=== PATIENT | male | born 1980 | race Caucasian/White ===

== ENCOUNTER 2016-11-27 18:54 | Emergency (ER) | payer SELFPAY ==
--- NOTE | 2016-11-27 19:10 | ER Document Report ---
ED Medical Screen (RME) - General Stated Complaint: LOW BACK AND LEFT HIP PAIN Mode of Arrival: Wheelchair Information source: Patient Notes: Patient presents emergency department with low left-sided back pain that radiates down his left hip. Denies other symptoms such as fever vomiting diarrhea. No recent traumas. Reports hx of arthritis. I have greeted and performed a rapid initial assessment of this patient. A comprehensive ED assessment and evaluation of the patient, analysis of test results and completion of the medical decision making process will be conducted by additional ED providers. TRAVEL OUTSIDE OF THE [place] IN LAST 30 DAYS: No - Related Data Allergies/Adverse Reactions: No Known Allergies Allergy (Verified 09/13/16 13:08) Past Medical History - Immunizations Hx Diphtheria, Pertussis, Tetanus Vaccination: Yes
[2016-11-27 19:11] VITALS: BP 127/64
[2016-11-27] MEDS ORDERED: PREDNISONE 20 MG TABLET PO ONE (20:37)
[2016-11-27] MEDS ORDERED: OXYCODONE-ACETAMINOPHEN 5-325 MG TABLET PO ONE (20:37)
--- NOTE | 2016-11-27 20:38 | ER Document Report ---
ED General - General Chief Complaint: Hip Pain Stated Complaint: LOW BACK AND LEFT HIP PAIN Mode of Arrival: Wheelchair Notes: Patient is a 36-year-old male that comes emergency department for chief complaint of pain in his left lower back radiating down his left leg, symptoms started yesterday and has been worsening he states he took ibuprofen but this has not resolved his symptoms whatsoever. He states he was told he has arthritis in his lower back after he had x-rays in September, he denies any back surgeries, denies any fever, denies urinary incontinence or retention, focal numbness or weakness, denies IV drug abuse. TRAVEL OUTSIDE OF THE [place] IN LAST 30 DAYS: No - Related Data Allergies/Adverse Reactions: No Known Allergies Allergy (Verified 11/27/16 19:10) Home Medications: Current Home Medications Ibuprofen 4 tab PO PRN 11/27/16 [History] Past Medical History - General Information source: Patient - Social History Smoking Status: Current Every Day Smoker Chew tobacco use (# tins/day): No Frequency of alcohol use: None Drug Abuse: None Family History: Reviewed & Not Pertinent Patient has suicidal ideation: No Patient has homicidal ideation: No Renal/ Medical History: Denies: Hx Peritoneal Dialysis Musculoskeltal Medical History: Reports Hx Arthritis Surgical Hx: Negative - Immunizations Hx Diphtheria, Pertussis, Tetanus Vaccination: Yes Review of Systems - Review of Systems Constitutional: No symptoms reported EENT: No symptoms reported Cardiovascular: No symptoms reported Respiratory: No symptoms reported Gastrointestinal: No symptoms reported Genitourinary: No symptoms reported Male Genitourinary: No symptoms reported Musculoskeletal: See HPI Skin: No symptoms reported Hematologic/Lymphatic: No symptoms reported Neurological/Psychological: No symptoms reported Physical Exam - Vital signs Vitals: Temp Pulse Resp BP Pulse Ox 98.0 F 100 20 127/64 H 99 11/27/16 19:10 11/27/16 19:10 11/27/16 19:10 11/27/16 19:10 11/27/16 19:10 Interpretation: Normal - General General appearance: Alert In distress: Mild - Patient rolled onto his right side, has a pillow between his legs, appears to be somewhat uncomfortable - HEENT Head: Normocephalic, Atraumatic Eyes: Normal Conjunctiva: Normal Extraocular movements intact: Yes Eyelashes: Normal Pupils: PERRL Nasal: Normal Mouth/Lips: Normal Mucous membranes: Normal Pharynx: Normal Neck: Normal - Respiratory Respiratory status: No respiratory distress Chest status: Nontender Breath sounds: Normal Chest palpation: Normal - Cardiovascular Rhythm: Regular. No: Tachycardia Heart sounds: Normal auscultation, S1 appreciated, S2 appreciated Murmur: No - Abdominal Inspection: Normal Distension: No distension Bowel sounds: Normal Tenderness: Nontender. No: Tender, Guarding Organomegaly: No organomegaly - Back Back: Tender - Tender with wincing with palpation over the left paralumbar musculature, positive straight leg raise on the left side, no midline spinal tenderness, no saddle anesthesia, normal distal neurovascular exam - Extremities General upper extremity: Normal inspection, Nontender, Normal color, Normal ROM , Normal temperature General lower extremity: Normal inspection, Nontender, Normal color, Normal ROM , Normal temperature, Normal weight bearing. No: Dakota's sign - Neurological Neuro grossly intact: Yes Cognition: Normal Orientation: AAOx4 [place] Coma Scale Eye Opening: Spontaneous [place] Coma Scale Verbal: Oriented [place] Coma Scale Motor: Obeys Commands David Coma Scale Total: 15 Speech: Normal Motor strength normal: LUE, RUE, LLE, RLE Sensory: Normal - Psychological Associated symptoms: Normal affect, Normal mood - Skin Skin Temperature: Warm Skin Moisture: Dry Skin Color: Normal Course - Re-evaluation Re-evalutation: Patient with obvious pain, has pain radiating from the left lower lumbar area down the back of his leg, positive straight leg raise, no neurological deficits , no midline spinal tenderness, no reported injuries to the spine. Previous radiology reviewed and does show degenerative disc disease. Patient will be treated for sciatica with pain medication and prednisone, discussed primary care follow-up and return precautions. Patient states understanding and agreement. - Vital Signs Vital signs: Temp Pulse Resp BP Pulse Ox 98.0 F 100 20 127/64 H 99 11/27/16 19:10 11/27/16 19:10 11/27/16 19:52 11/27/16 19:10 11/27/16 19:10 Discharge - Discharge Clinical Impression: Lower back pain Qualifiers: Chronicity: acute Back pain laterality: left Sciatica presence: with sciatica Sciatica laterality: sciatica of left side Qualified Code(s): M54.42 - Lumbago with sciatica, left side Condition: Stable Disposition: HOME, SELF-CARE Additional Instructions: Examination is consistent with sciatica, take pain medication as prescribed, take prednisone as prescribed, rest. Follow-up with primary care. You may need a referral from primary care to spinal specialty. Return to emergency department for any concerning or worsening symptoms including fever, loss of bowel or bladder control, loss of feeling, or any other concerning symptoms. Sciatica Your symptoms suggest "sciatica." The pain of sciatica typically radiates down the leg. Numbness in the foot or calf may also occur. Sciatica is caused by irritation of the sciatic nerve or its branches. The irritation can be due to a herniated disk in the spine, swelling and inflammation in the muscles surrounding the sciatic nerve, or direct injury of the nerve itself. Most cases of sciatica will resolve with medical treatment. Bed rest is usually recommended initially. Surgery is only necessary when the condition will not improve with rest and antiinflammatory medication. Muscle relaxers are often given if muscle soreness is present. A CAT scan of the back may be performed if a herniated disk is suspected. Re-examination is necessary if you develop increasing numbness, localized weakness in the foot or ankle, or if the pain does not respond to rest. Prescriptions: Oxycodone HCl/Acetaminophen [Percocet 5-325 mg Tablet] 1 - 2 tab PO Q4H PRN #20 tablet PRN Reason: Prednisone [Deltasone 10 mg Tablet] 10 mg PO ASDIR PRN #21 tablet PRN Reason: Referrals: [facility] [Provider Group] - Follow up in 1 week
[2016-11-27] MEDS ORDERED: HYDROCODONE/ACETAMINOPHEN 5-325 MG 6 TAB/DSPK PO PRN (20:56)
== END 2016-11-27 21:35 | disposition home or self-care (01) ==
LOC: ER 18:54
DX: M54.42 Lumbago with sciatica, left side (principal); F17.200 Nicotine dependence, unspecified, uncomplicated
CPT/HCPCS: 99283; J7512

== ENCOUNTER 2016-11-29 14:17 | Emergency (ER) | payer SELFPAY ==
--- NOTE | 2016-11-29 14:51 | ER Document Report ---
ED Medical Screen (RME) - General Stated Complaint: LEG PAIN Mode of Arrival: Ambulatory Information source: Patient Notes: 36-year-old male presents to emergency department complaining of low back pain radiating down his left leg. States has authorities to lower back and has seen in the ED for similar symptoms 3 days ago. Reports pain is worse but now has numbness to left lower leg and foot. Denies fever, saddle numbness, or bowel/ bladder dysfunction. I have greeted and performed a rapid initial assessment of this patient. A comprehensive ED assessment and evaluation of the patient, analysis of test results and completion of the medical decision making process will be conducted by additional ED providers. TRAVEL OUTSIDE OF THE [place] IN LAST 30 DAYS: No - Related Data Allergies/Adverse Reactions: No Known Allergies Allergy (Verified 11/29/16 14:46) Past Medical History - Social History Chew tobacco use (# tins/day): No Frequency of alcohol use: None Drug Abuse: None Renal/ Medical History: Denies: Hx Peritoneal Dialysis Musculoskeltal Medical History: Reports Hx Arthritis - Immunizations Hx Diphtheria, Pertussis, Tetanus Vaccination: Yes Physical Exam - Vital signs Vitals: Temp Pulse Resp BP Pulse Ox 97.3 F 94 20 146/77 H 100 11/29/16 14:32 11/29/16 14:32 11/29/16 14:32 11/29/16 14:32 11/29/16 14:32 - General General appearance: Alert In distress: None - Respiratory Respiratory status: No respiratory distress Course - Vital Signs Vital signs: Temp Pulse Resp BP Pulse Ox 97.6 F 93 18 116/79 96 11/29/16 14:42 11/29/16 14:42 11/29/16 14:42 11/29/16 14:42 11/29/16 14:42
[2016-11-29] MEDS ORDERED: HYDROMORPHONE HCL INJ/PF 2 MG/ML AMPULE IM ONE (16:14)
--- NOTE | 2016-11-29 16:16 | ER Document Report ---
HPI - HPI Patient complains to provider of: low back pain Onset: Other - 4 days Onset/Duration: Worse Quality of pain: Sharp Pain Level: 3 Context: Patient complains of low back pain for the past 4 days. Patient was here 3 days ago and given a prescription for steroids and pain medication. Patient has been taking medication without relief of his symptoms. Patient complains of low back pain that radiates down the posterior aspect of his left leg down to the level of the midcalf area. Patient states that pain stops there. Patient complains of numbness involving his left foot. Patient without any foot weakness but just complains of sensation feeling like it is asleep. Patient denies any injury, fever, or IV drug use. Patient denies any urinary retention or incontinence. Associated Symptoms: Other - Low back pain. denies: Fever, Headache, Nausea, Vomiting Exacerbated by: Movement Relieved by: Denies Similar symptoms previously: Yes Recently seen / treated by doctor: Yes - ROS ROS below otherwise negative: Yes Systems Reviewed and Negative: Yes All other systems reviewed and negative - CONSTITUTIONAL Constitutional: DENIES: Fever, Chills - NEURO Neurology: DENIES: Headache, Weakness - GASTROINTESTINAL Gastrointestinal: DENIES: Nausea, Patient vomiting - URINARY Notes: No retention or incontinence - MUSCULOSKELETAL Musculoskeletal: REPORTS: Extremity pain, Back Pain - DERM Skin Color: Normal Skin Problems: None Past Medical History - General Information source: Patient - Social History Smoking Status: Current Every Day Smoker Chew tobacco use (# tins/day): No Frequency of alcohol use: None Drug Abuse: None Occupation: farming Lives with: Family Family History: Reviewed & Not Pertinent Patient has suicidal ideation: No Patient has homicidal ideation: No - Medical History Medical History: Negative Renal/ Medical History: Denies: Hx Peritoneal Dialysis Musculoskeltal Medical History: Reports Hx Arthritis Surgical Hx: Negative - Immunizations Hx Diphtheria, Pertussis, Tetanus Vaccination: Yes Vertical Provider Document - CONSTITUTIONAL Agree With Documented VS: Yes Exam Limitations: No Limitations General Appearance: WD/WN, Mild Distress Notes: PHYSICAL EXAMINATION: GENERAL: Well-appearing, well-nourished and in no acute distress. HEAD: Atraumatic, normocephalic. EYES: sclera clear, anicteric, conjunctiva are normal. ENT: nares patent, Moist mucous membranes. NECK: Normal range of motion, supple no lymphadenopathy LUNGS: respirations unlabored HEART: Regular rate and rhythm without murmurs EXTREMITIES: Normal range of motion, no pitting or edema. No cyanosis. BACK: Lower lumbar midline tenderness, left SI joint tenderness, no deformities or step-offs. No CVA tenderness. NEUROLOGICAL: Cranial nerves grossly intact. Normal speech. No saddle anesthesia. 2+ patellar and Achilles tendon reflexes bilaterally PSYCH: Normal mood, normal affect. SKIN: Warm, Dry, normal turgor, no rashes or lesions noted. - INFECTION CONTROL TRAVEL OUTSIDE OF THE [place] IN LAST 30 DAYS: No - RESPIRATORY O2 Sat by Pulse Oximetry: 96 Course - Re-evaluation Re-evalutation: 11/29/16 16:[address] Vaca who recommends CT imaging of the lumbar spine. 11/29/16 17:[address] Vaca regarding CT report, recommends consultation with radiologist. Spoke with Dr. Jett who states that patient does not have findings concerning for the need for an emergent MRI. Recommends outpatient follow-up for further management. Discuss results of CT with patient, discussed worsening signs or symptoms to return immediately such as urinary retention, weakness, foot drop, and saddle anesthesia. Patient verbalized understanding and agrees with plan of care. - Vital Signs Vital signs: Temp Pulse Resp BP Pulse Ox 97.6 F 93 18 116/79 96 11/29/16 14:42 11/29/16 14:42 11/29/16 14:42 11/29/16 14:42 11/29/16 14:42 - Diagnostic Test Radiology reviewed: Reports reviewed Discharge - Discharge Clinical Impression: Radicular low back pain Lower back pain Qualifiers: Chronicity: acute Back pain laterality: left Sciatica presence: with sciatica Sciatica laterality: sciatica of left side Qualified Code(s): M54.42 - Lumbago with sciatica, left side Herniated disc Qualifiers: Spinal region: lumbar Qualified Code(s): M51.26 - Other intervertebral disc displacement, lumbar region Condition: Stable Disposition: HOME, SELF-CARE Additional Instructions: Return immediately for any new or worsening symptoms Followup with your primary care provider, call tomorrow to make a followup appointment Take your pain medication that you have at home as prescribed LOW BACK PAIN: Three out of every four people will have an episode of disabling back pain during their lifetime. Most commonly the pain is due to straining of the muscles and ligaments in the low back. Usual treatment includes: (1) Rest on a firm surface. Avoid lying on your stomach. (2) Ice pack the painful area. After a few days, gentle heat may be used intermittently to relax the area, or ice packs can be continued. (3) Medication may be needed -- muscle relaxers and antiinflammatory medicines are commonly used. (4) As the back improves, exercises are prescribed to strengthen the back and abdominal muscles. Your doctor will advise you on the proper care for your back at each stage in your recovery. You may be better in a few days -- or healing may take several weeks. If new symptoms of a "herniated disc" (radiation of pain, numbness, or tingling down the back of the leg or weakness in the leg) occur, you should be re-examined. Further testing may be necessary. PAIN MEDICATION INJECTION: You have received an injection of a pain medication. You should experience significant pain relief within 45 minutes. If this injection was a narcotic -- it will impair your judgement, slow your reaction time and make you sleepy (as well as relieve your pain). Narcotics also can cause nausea. You should not drive, work with machinery, or perform any task requiring mental alertness until all effects of the medication are gone -- six to eight hours. Do not take any alcohol, or sedatives, and do not take any other medication without checking with your physician. ICE PACKS: Apply ice packs frequently against the painful area. Many different schedules are recommended, such as "20 minutes on, 20 minutes off" or "one hour ice, two hours rest." If you need to work, you may need to go longer between ice treatments. You should plan to have the area ice packed AT LEAST one fourth of the time. The ice should be applied over the wrap, tape, or splint, or over a layer of cloth -- not directly against the skin. Some ice bags have a built-in cloth and can be put directly on the skin. WARM PACKS: After approximately two days, apply gentle heat (such as a heating pad or hot water bottle) for about 20 to 30 minutes about every two hours -- at least four times daily. Warmth and elevation will help you make a more rapid recovery , and will ease the pain considerably. Do not use HOT heat, and never apply heat for longer than 30 minutes. The continuous heat can invisibly damage skin and muscles -- even when no burn is seen on the surface. Damaged muscles can make you MORE sore. FOLLOW-UP CARE: If you have been referred to a physician for follow-up care, call the physician s office for an appointment as you were instructed or within the next two days. If you experience worsening or a significant change in your symptoms, notify the physician immediately or return to the Emergency Department at any time for re-evaluation. Referrals: [facility] [Provider Group] - Follow up tomorrow [facility] [Provider Group] - Follow up tomorrow
[2016-11-29 18:12] VITALS: BP 104/62
== END 2016-11-29 18:10 | disposition home or self-care (01) ==
LOC: ER 14:17
DX: M54.16 Radiculopathy, lumbar region (principal); M54.42 Lumbago with sciatica, left side; M51.36 Other intervertebral disc degeneration, lumbar region; M54.5 Low back pain; R20.0 Anesthesia of skin; F17.210 Nicotine dependence, cigarettes, uncomplicated
CPT/HCPCS: 99283; 96372; 72131; J1170

== ENCOUNTER 2016-12-05 15:24 | Emergency (ER) | payer SELFPAY ==
[2016-12-05] MEDS ORDERED: OXYCODONE-ACETAMINOPHEN 5-325 MG TABLET PO ONE ×2 (15:42→17:48)
--- NOTE | 2016-12-05 15:42 | ER Document Report ---
ED Medical Screen (RME) - General Stated Complaint: BACK AND LEG PAIN Time seen by provider: 15:38 Mode of Arrival: Wheelchair Notes: Patient presents with chronic back pain, which has worsened over the last few weeks. Pain is running down left leg into foot, states his left foot feels numb. Denies bowel or bladder dysfunction. Denies new injury. I have greeted and performed a rapid initial assessment of this patient. A comprehensive ED assessment and evaluation of the patient, analysis of test results and completion of the medical decision making process will be conducted by additional ED providers. TRAVEL OUTSIDE OF THE [place] IN LAST 30 DAYS: No - Related Data Allergies/Adverse Reactions: No Known Allergies Allergy (Verified 11/29/16 14:46) Past Medical History Renal/ Medical History: Denies: Hx Peritoneal Dialysis Musculoskeltal Medical History: Reports Hx Arthritis - Immunizations Hx Diphtheria, Pertussis, Tetanus Vaccination: Yes Physical Exam - Back Back: Tender - lower back, worse on left. Patient looks moderately uncomfortable., Vertebra tenderness - Lumbar
[2016-12-05] MEDS ORDERED: IBUPROFEN 600 MG TABLET PO ONE (17:48)
--- NOTE | 2016-12-05 17:54 | ER Document Report ---
ED General - General Chief Complaint: Low Back Pain Stated Complaint: BACK AND LEG PAIN Mode of Arrival: Wheelchair Information source: Patient Notes: 36-year-old male who presents today with the onset of intermittent left lower back pain radiating down the back of his left leg starting around 3 months ago. He was here when 2 weeks ago and had an MRI performed. Patient states he has been waiting to go back to [place] and around one month to see his mom's orthopedic surgeon. He denies any fevers, incontinence, or weakness of bilateral legs. TRAVEL OUTSIDE OF THE [place] IN LAST 30 DAYS: No - HPI Onset: Other - See above Onset/Duration: Gradual Quality of pain: Achy Severity: Moderate Pain Level: 3 Associated symptoms: Other - See above Exacerbated by: Movement Relieved by: Remaining still Similar symptoms previously: Yes Recently seen / treated by doctor: Yes - Related Data Allergies/Adverse Reactions: No Known Allergies Allergy (Verified 12/05/16 15:40) Past Medical History - General Information source: Patient - Social History Smoking Status: Current Every Day Smoker Chew tobacco use (# tins/day): No Frequency of alcohol use: None Drug Abuse: None Family History: Reviewed & Not Pertinent Patient has suicidal ideation: No Patient has homicidal ideation: No Renal/ Medical History: Denies: Hx Peritoneal Dialysis Musculoskeltal Medical History: Reports Hx Arthritis - Immunizations Hx Diphtheria, Pertussis, Tetanus Vaccination: Yes Review of Systems - Review of Systems Constitutional: denies: Fever Respiratory: denies: Short of breath Gastrointestinal: denies: Abdominal pain, Diarrhea, Vomiting Genitourinary: denies: Dysuria Musculoskeletal: denies: Leg swelling Skin: denies: Rash Neurological/Psychological: Numbness. denies: Weakness, Gait changes, Loss of power Physical Exam - Vital signs Vitals: Temp Pulse Resp BP Pulse Ox 97.8 F 123 H 22 H 132/75 H 99 12/05/16 15:41 12/05/16 15:41 12/05/16 15:41 12/05/16 15:41 12/05/16 15:41 Notes: Reviewed vital signs and nursing note as charted by RN. CONSTITUTIONAL: Patient appears to be in pain. HEAD: Normocephalic; atraumatic CARD: Regular rate and rhythm; no murmurs, no clicks, no rubs, no gallops; symmetric distal pulses ABD/GI: Normal bowel sounds; non-distended; soft, non-tender BACK: The back appears normal and is non-tender to palpation along the midline spine with no obvious swelling, erythema, or induration. Patient does have some left-sided paraspinal muscular tenderness. EXT: Normal ROM in all joints; non-tender to palpation; no cyanosis, no effusions, no edema SKIN: Normal color for age and race; warm; dry; good turgor; capillary refill < 2 seconds; no acute lesions noted NEURO: Moves all extremities equally; patient has 5 out of 5 bilateral lower extremity strength with excellent plantar and dorsiflexion. Sensation is intact to light touch. Normal 2+ patellar reflexes. PSYCH: The patient's mood and manner are appropriate. Grooming and personal hygiene are appropriate. Course - Re-evaluation Re-evalutation: 12/05/16 17:52 Given the history and physical examination, with a recent MRI, with no signs of cord impingement, I will discharge the patient home with some Percocet, Motrin, strict return precautions, and follow-up with a local orthopedic surgeon. - Vital Signs Vital signs: Temp Pulse Resp BP Pulse Ox 97.8 F 123 H 22 H 132/75 H 99 12/05/16 15:41 12/05/16 15:41 12/05/16 15:41 12/05/16 15:41 12/05/16 15:41 Discharge - Discharge Clinical Impression: Low back pain Qualifiers: Chronicity: acute Back pain laterality: left Sciatica presence: with sciatica Sciatica laterality: sciatica of left side Qualified Code(s): M54.42 - Lumbago with sciatica, left side Sciatica Qualifiers: Laterality: left Qualified Code(s): M54.32 - Sciatica, left side Condition: Good Disposition: HOME, SELF-CARE Additional Instructions: Come back immediately with any incontinence, fevers, increased pain, weakness, or any other acute problems. Please follow-up with Dr. Haile as we have discussed. Prescriptions: Oxycodone HCl/Acetaminophen [Percocet 5-325 mg Tablet] 1 - 2 tab PO ASDIR PRN # 15 tablet PRN Reason: Referrals: RENITA HAILE MD [ACTIVE STAFF] - Follow up as needed
[2016-12-05 18:11] VITALS: BP 110/72
== END 2016-12-05 18:19 | disposition home or self-care (01) ==
LOC: ER 15:24
DX: M54.42 Lumbago with sciatica, left side (principal); F17.200 Nicotine dependence, unspecified, uncomplicated
CPT/HCPCS: 99283

== ENCOUNTER 2016-12-16 16:55 | Emergency (ER) | payer SELFPAY ==
--- NOTE | 2016-12-16 17:29 | ER Document Report ---
ED Medical Screen (RME) - General Stated Complaint: HIP/BACK PAIN Time seen by provider: 17:27 Mode of Arrival: Wheelchair Information source: Patient Notes: 36-year-old male presents to ED for lower back radiating down the left hip and leg. States he was told he had a "slipped disc" there is pinching a nerve and he was seen in the emergency room a couple weeks ago. No loss of control of bowel or bladder denies saddle anesthesia. States he had for 200 mg ibuprofen a couple hours ago, has not taken any Tylenol. I have greeted and performed a rapid initial assessment of this patient. A comprehensive ED assessment and evaluation of the patient, analysis of test results and completion of medical decision making process will be conducted by an additional ED providers. TRAVEL OUTSIDE OF THE [place] IN LAST 30 DAYS: No - Related Data Allergies/Adverse Reactions: No Known Allergies Allergy (Verified 12/16/16 17:27) Past Medical History Renal/ Medical History: Denies: Hx Peritoneal Dialysis Musculoskeltal Medical History: Reports Hx Arthritis - Immunizations Hx Diphtheria, Pertussis, Tetanus Vaccination: Yes Physical Exam - Vital signs Vitals: Temp Pulse Resp BP Pulse Ox 98.4 F 114 H 18 112/92 H 97 12/16/16 17:01 12/16/16 17:01 12/16/16 17:01 12/16/16 17:01 12/16/16 17:01 Course - Vital Signs Vital signs: Temp Pulse Resp BP Pulse Ox 98.4 F 114 H 18 112/92 H 97 12/16/16 17:01 12/16/16 17:01 12/16/16 17:01 12/16/16 17:01 12/16/16 17:01
[2016-12-16] MEDS ORDERED: HYDROMORPHONE HCL INJ/PF 2 MG/ML AMPULE IM ONE (18:34)
--- NOTE | 2016-12-16 18:42 | ER Document Report ---
HPI - HPI Patient complains to provider of: low back pain Onset: Other - 3 months Onset/Duration: Persistent Quality of pain: Sharp, Stabbing Pain Level: 5 Context: Patient reports low back pain that radiates to left lower extremity for the past 3 months. Patient states that pain radiates down the back side of his left leg all the way down to his foot. Patient complains of a numbness sensation to his foot. Patient denies any urinary retention or incontinence. Patient denies any new injury. Patient denies any difference in the presentation of his pain. Patient states that he is visiting here from out of state and is waiting to go back home to follow-up with his primary care provider. Patient has [id number] insurance that is not accepted here. Patient denies any fever, IV drug use, or history of alcoholism. Patient was evaluated in the emergency department previously for this complaint was diagnosed with a herniated disc. Associated Symptoms: Other - Low back pain. denies: Fever Exacerbated by: Movement Relieved by: Denies Similar symptoms previously: Yes Recently seen / treated by doctor: Yes - ROS ROS below otherwise negative: Yes Systems Reviewed and Negative: Yes All other systems reviewed and negative - CONSTITUTIONAL Constitutional: DENIES: Fever, Chills - NEURO Neurology: DENIES: Weakness - MUSCULOSKELETAL Musculoskeletal: REPORTS: Extremity pain, Back Pain. DENIES: Swelling - DERM Skin Color: Normal Skin Problems: None Past Medical History - General Information source: Patient - Social History Smoking Status: Current Every Day Smoker Chew tobacco use (# tins/day): No Frequency of alcohol use: None Drug Abuse: None Occupation: farming Lives with: Family Family History: Reviewed & Not Pertinent Patient has suicidal ideation: No Patient has homicidal ideation: No Renal/ Medical History: Denies: Hx Peritoneal Dialysis Musculoskeltal Medical History: Reports Hx Arthritis, Reports Other - Herniated disc Surgical Hx: Negative - Immunizations Hx Diphtheria, Pertussis, Tetanus Vaccination: Yes Vertical Provider Document - CONSTITUTIONAL Agree With Documented VS: Yes Exam Limitations: No Limitations General Appearance: Mild Distress Notes: PHYSICAL EXAMINATION: GENERAL: well-nourished and in no acute distress, patient appears uncomfortable with movement. HEAD: Atraumatic, normocephalic. EYES: sclera clear, anicteric, conjunctiva are normal. ENT: nares patent, Moist mucous membranes. NECK: Normal range of motion, supple no lymphadenopathy LUNGS: respirations unlabored HEART: Regular rate and rhythm without murmurs EXTREMITIES: Normal range of motion, no pitting or edema. No cyanosis. Gait normal, pt ambulates without difficulty BACK: Left lower lumbar paraspinal tenderness Lower lumbar midline tenderness, no deformities or step-offs. No CVA tenderness. NEUROLOGICAL: Cranial nerves grossly intact. Normal speech. No saddle anesthesia. Positive straight leg test on the left, 2+ patellar and Achilles reflexes, patient able to dorsiflex bilateral great toes PSYCH: Normal mood, normal affect. SKIN: Warm, Dry, normal turgor, no rashes or lesions noted. - INFECTION CONTROL TRAVEL OUTSIDE OF THE [place] IN LAST 30 DAYS: No - RESPIRATORY O2 Sat by Pulse Oximetry: 97 Course - Re-evaluation Re-evalutation: 12/16/16 18:[address] Swan regarding patient presentation and management. Does not recommend any additional imaging at this time. Recommends outpatient follow-up with a orthopedic note specialist. Recommend short course of pain medication as well as steroids. Recommends advising patient that refills of pain medications will not be given on repeat emergency room visits. 12/16/16 20:00 Patient with normal gait after medicated for pain 12/16/16 20:01 Discussed pain management with patient. Patient advised that he may not be given additional pain medications on subsequent visits and that he is encouraged to proactively follow-up with her primary doctor or orthopedic note specialist for further management of his symptoms. Patient verbalized understanding and states that he plans to go back to [place] at the earliest by the end of next week. - Vital Signs Vital signs: Temp Pulse Resp BP Pulse Ox 98.4 F 114 H 18 112/92 H 97 12/16/16 17:01 12/16/16 17:01 12/16/16 17:01 12/16/16 17:01 12/16/16 17:01 - Diagnostic Test Radiology reviewed: Reports reviewed - Reviewed CT report from previous ER visit Discharge - Discharge Clinical Impression: History of herniated intervertebral disc Low back pain Qualifiers: Chronicity: unspecified Back pain laterality: left Sciatica presence: with sciatica Sciatica laterality: sciatica of left side Qualified Code(s): M54.42 - Lumbago with sciatica, left side Condition: Stable Disposition: HOME, SELF-CARE Additional Instructions: Return immediately for any new or worsening symptoms Followup with your primary care provider, call tomorrow to make a followup appointment LOW BACK PAIN: Three out of every four people will have an episode of disabling back pain during their lifetime. Most commonly the pain is due to straining of the muscles and ligaments in the low back. Usual treatment includes: (1) Rest on a firm surface. Avoid lying on your stomach. (2) Ice pack the painful area. After a few days, gentle heat may be used intermittently to relax the area, or ice packs can be continued. (3) Medication may be needed -- muscle relaxers and antiinflammatory medicines are commonly used. (4) As the back improves, exercises are prescribed to strengthen the back and abdominal muscles. Your doctor will advise you on the proper care for your back at each stage in your recovery. You may be better in a few days -- or healing may take several weeks. If new symptoms of a "herniated disc" (radiation of pain, numbness, or tingling down the back of the leg or weakness in the leg) occur, you should be re-examined. Further testing may be necessary. PAIN MEDICATION INJECTION: You have received an injection of a pain medication. You should experience significant pain relief within 45 minutes. If this injection was a narcotic -- it will impair your judgement, slow your reaction time and make you sleepy (as well as relieve your pain). Narcotics also can cause nausea. You should not drive, work with machinery, or perform any task requiring mental alertness until all effects of the medication are gone -- six to eight hours. Do not take any alcohol, or sedatives, and do not take any other medication without checking with your physician. ORAL NARCOTIC MEDICATION: You have been given a prescription for pain control. This medication is a narcotic. It's best taken with food, as nausea can result if taken on an empty stomach. Don't operate machinery or drive within six hours of taking this medication. Do not combine this medicine with alcohol, or with any medication which can cause sedation (such as cold tablets or sleeping pills) unless you get permission from the physician. Narcotics tend to cause constipation. If possible, drink plenty of fluids and eat a diet high in fiber and fruits. Please be aware that prescription narcotics also have the potential for abuse. People become addicted to these medications because of the general sense of wellbeing that they induce. This feeling along with a significant reduction in tension, anxiety, and aggression provides a stimulating seductive quality to these drugs. Once your pain is under control, we encourage you to discard your unused narcotics. MUSCLE RELAXERS: Muscle relaxing medications are usually prescribed for acute muscle spasm or injury to the neck and back. They are often combined with antiinflammatory pain medication for increased relief. You may stop the muscle relaxer when the pain and stiffness have improved. Start the medication again if spasms recur. Muscle relaxers may cause drowsiness, especially with the first dose. Do not operate machinery or drive while under the effects of the medication. Most muscle relaxers last up to 24 hours. Do not combine the medication with alcohol. ICE PACKS: Apply ice packs frequently against the painful area. Many different schedules are recommended, such as "20 minutes on, 20 minutes off" or "one hour ice, two hours rest." If you need to work, you may need to go longer between ice treatments. You should plan to have the area ice packed AT LEAST one fourth of the time. The ice should be applied over the wrap, tape, or splint, or over a layer of cloth -- not directly against the skin. Some ice bags have a built-in cloth and can be put directly on the skin. WARM PACKS: After approximately two days, apply gentle heat (such as a heating pad or hot water bottle) for about 20 to 30 minutes about every two hours -- at least four times daily. Warmth and elevation will help you make a more rapid recovery , and will ease the pain considerably. Do not use HOT heat, and never apply heat for longer than 30 minutes. The continuous heat can invisibly damage skin and muscles -- even when no burn is seen on the surface. Damaged muscles can make you MORE sore. FOLLOW-UP CARE: If you have been referred to a physician for follow-up care, call the physician s office for an appointment as you were instructed or within the next two days. If you experience worsening or a significant change in your symptoms, notify the physician immediately or return to the Emergency Department at any time for re-evaluation. Prescriptions: Cyclobenzaprine HCl [Flexeril 10 Mg Tablet] 10 mg PO TID #15 tablet Oxycodone HCl/Acetaminophen [Percocet 5-325 mg Tablet] 1 - 2 tab PO ASDIR PRN # 30 tablet PRN Reason: Prednisone [Deltasone 20 mg Tablet] 3 tab PO DAILY 5 Days Referrals: [facility] [Provider Group] - Follow up as needed [facility] [Provider Group] - Follow up tomorrow
[2016-12-16] MEDS ORDERED: PREDNISONE 20 MG TABLET PO ONE (18:56)
[2016-12-16 20:34] VITALS: BP 120/88
== END 2016-12-16 20:34 | disposition home or self-care (01) ==
LOC: ER 16:55
DX: M54.42 Lumbago with sciatica, left side (principal); F17.200 Nicotine dependence, unspecified, uncomplicated
CPT/HCPCS: 99283; 96372; J1170; J7512